=== PATIENT | male | born 1985 | race Caucasian/White ===

== ENCOUNTER 2021-07-02 14:31 | Emergency (ER) | payer OTHER ==
[~2021-07-02] VITALS: Ht 190.5 cm; Wt 158.8 kg
[~2021-07-02 14:31] MED LIST: NORVASC 5 MG TAB5 MG PO; PRINIVIL10 MG PO; VISTARIL 50 MG50 MG PO
== END 2021-07-02 17:50 | disposition home or self-care (01) ==
LOC: ER1 14:31
DX: U07.1 COVID-19 (principal); E11.9 Type 2 diabetes mellitus without complications; I10 Essential (primary) hypertension; E78.5 Hyperlipidemia, unspecified; Z90.49 Acquired absence of other specified parts of digestive tract; Z87.442 Personal history of urinary calculi; Z88.0 Allergy status to penicillin; Z23 Encounter for immunization
CPT/HCPCS: 99283; M0243